=== PATIENT | female | born 2000 | race Caucasian/White ===

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

== ENCOUNTER 2024-08-03 09:21 | Outpatient (CLI) | payer OTHER, SELFPAY ==
[2024-08-03 15:23] LABS: Cholesterol 143 mg/dl (140-200); HDL Cholesterol 48 mg/dl (40-60); Triglycerides 57 mg/dl (30-150); VLDL Cholesterol 11 mg/dL (0-40)
[2024-08-03 15:34] LABS: Direct LDL Cholesterol 82.07 mg/dL (100-129)
[2024-08-03 15:54] LABS: Thyroid Stimulating Hormone 2.48 uIU/mL (0.465-4.68)
[2024-08-04 11:12] LABS: Anti-Centromere B Antibodies <0.2 AI (0.0-0.9); Anti-DNA (DS) Ab Qn 2 IU/mL (0-9); Anti-Jo-1 <0.2 AI (0.0-0.9); Anti-Smith Antibody <0.2 AI (0.0-0.9); Antichromatin Antibodies <0.2 AI (0.0-0.9); Antiscleroderma-70 Antibodies <0.2 AI (0.0-0.9); RNP Antibodies 0.2 AI (0.0-0.9); Sjogren's Anti-SS-A 0.3 AI (0.0-0.9); Sjogren's Anti-SS-B <0.2 AI (0.0-0.9)
== END 2024-08-03 23:59 | disposition home or self-care (01) ==
LOC: LAB.DROPOF 08-04 11:03
PROVIDERS: PCP Internal Medicine; Visit Provider Internal Medicine
DX: Z13.29 Encounter for screening for other suspected endocrine disorder (principal); Z13.220 Encounter for screening for lipoid disorders; M35.3 Polymyalgia rheumatica; R53.83 Other fatigue; M25.50 Pain in unspecified joint; E66.811 Obesity, class 1; Z68.30 Body mass index [BMI] 30.0-30.9, adult; Z82.49 Family history of ischemic heart disease and other diseases of the circulatory system
CPT/HCPCS: 80061; 84439; 84443; 86225; 86235

== ENCOUNTER 2024-08-16 18:55 | Outpatient (CLI) | payer OTHER, SELFPAY ==
[2024-08-17 15:38] LABS: Coronavirus 19, PCR Not Detected (NotDetected); Human Rhinovirus Not Detected (NotDetected); Influenza A, PCR Not Detected (NotDetected); Influenza B, PCR Not Detected (NotDetected); Respiratory Syncytial Virus Not Detected (NotDetected)
== END 2024-08-16 23:59 | disposition home or self-care (01) ==
LOC: LAB.DROPOF 08-18 13:08
PROVIDERS: PCP Nurse Practitioner; Visit Provider Nurse Practitioner
DX: R52 Pain, unspecified (principal)
CPT/HCPCS: 87631

== ENCOUNTER 2024-10-17 10:25 | Day surgery (SDC) | payer OTHER, SELFPAY ==
--- OUTSIDE RECORDS SUMMARY | 2024-05-30 12:30 | XMS_ITS ---
Author Organization [facility] Address [address] [place] [phone] Care Team Providers Care Fish Roe Processor Name Role Phone Suni Oconnell Unavailable [phone] Jacqueline Valerio Unavailable [phone] Allergies No Known Allergies REASON FOR VISIT [...] Encounters Encounter Location Date Provider Diagnosis [facility] [address] [place] [address] [place] [phone] 05/30/2024 Jacqueline Valerio Arthralgia M25.50 Assessments Encounter Date Diagnosis (ICD Code) Assessment Notes Treatment Notes Treatment Clinical Notes Section Notes 05/30/2024 Arthralgia (ICD-10 - M25.50) Plan Of Treatment Medication Medication Name Sig Start Date Stop Date Notes Meloxicam 15 MG 1 tablet Orally Once a day; Duration: 30 day(s) 05/30/2024 Pending Test Test Name Order Date U-U-Bvxrrwff Protein (CRP) 05/30/2024 P-Arthritis Panel, [facility] 05/30/2024 P-Uric Acid 05/30/2024 Next Appt Details Follow Up: 4 Weeks, Reason: Progress Notes * NYA SERNAOB:2000 (23 yo F)Acc No.[id number]:05/30/2024 Progress Notes Patient: KATHRINE WORLEY Provider: Jacqueline Valerio M.D. :2000 A ge:23 Y S ex:Female Date:05/30/2024 Address:[address] [place] [address] Subjective: * Chief Complaints: * 1 . [...] * Images: Billing Information: * Visit Code: 35794 Office Visit, Est Pt., Level 3. * Procedure Codes: 3074F SYST BP LT 130 MM HG. 3078F DIAST BP < 80 MM HG. * Electronic signature of Jacqueline Valerio MD on 10/17/2024 at 10:33 AM EDT Sign off status: Pending * Provider: Jacqueline Valerio M.D. Date: 0 05/30/2024 Generated for Santos putnam/Soco/Jeannasmitting on: 0 10/17/2024 10:33 AM EDT History and Physical Notes * Examination Category Sub-Category Detail Notes Category Not es General Examination Extremities: On examinati on, there is no acute joint swelling, redness, or warmth. Range of motion of joints is normal. General Appearance: NAD
--- OUTSIDE RECORDS SUMMARY | 2024-05-31 04:15 | XMS_ITS ---
Author Organization [facility] Address [address] [phone] Care Team Providers Care Store Receiver Name Role Phone Suni Oconnell Unavailable [phone] Jacqueline Valerio Unavailable [phone] Results Component Value Reference Range Notes P-Arthritis Panel, [facility] Reviewed date:06/05/2024 10:23:08 AM Interpretation:Normal Performing Lab: Notes/Report: Test performed by [facility] , [address], [place] [address] Silvino Reese MD, Mender Hand CLIA: [id number] Erythrocyte Sedimentation Rate (ESR), Automated 2 <26 mm/hr Rheumatoid Factor 11.0 <14.1 IU/mL C-Reactive Protein (CRP) 0.14 <0.50 mg/dL Antinuclear Antibodies (VAN) Screen, Reflex VAN 9 Panel Negative Negative This test is performed by Multiplex Bead Immunoassay methodology. Antinuclear Antibodies (VAN) Result Note SEE COMMENT For positive Autoantibodies, please refer to the interpretive chart here: [email or web address] CCP Antibodies <0.5 <0.5-3.0 U/mL P-Uric Acid Reviewed date:06/05/2024 10:23:08 AM Interpretation:Normal Performing Lab: Notes/Report: Test performed by [facility] , [address], [place] [address] Silvino Reese MD, Mender Hand CLIA: [id number] Uric Acid 5.4 2.4-7.0 mg/dL REASON FOR VISIT blood work Encounters Encounter Location Date Provider Diagnosis [facility] [address] [place] [phone] 05/31/2024 Jacqueline Valerio Arthralgia of multip le joints M25.50 Assessments Encounter Date Diagnosis (ICD Code) Assessment Notes Treatment Notes Treatment Clinical Notes Section Notes 05/31/2024 Arthralgia of multiple joints (ICD-10 - M25.50) Plan Of Treatment Pending Test Test Name Order Date E-F-Giwuifxt Protein (CRP) 05/31/2024 Progress Notes * NYA SERNAOB:2000 (23 yo F)Acc No.[id number]:05/31/2024 Patient: KAYE WORLEY Provider: Jacqueline Valerio M.D. :2000 A ge:23 Y S ex:Female Date:05/31/2024 Address:[address] [place] [address] Subjective: * Chief Complaints: * 1 . [...] 05/31/2024 Generated for Hani jersey/Soco/eTransmitting on: 0 10/17/2024 10:33 AM EDT
--- OUTSIDE RECORDS SUMMARY | 2024-06-27 12:15 | XMS_ITS ---
Author Organization [facility] Address [address] [place] [phone] Care Team Providers Care Controller Mechanic Name Role Phone Suni Oconnell Unavailable [phone] Jacqueline Valerio Unavailable [phone] REASON FOR VISIT 1 month ckup Encounters Encounter Location Date Provider Diagnosis [facility] [address] [place] [phone] 06/27/2024 Jacqueline Valerio Plan Of Treatment No Information Progress Notes * NYA SERNAOB:2000 (23 yo F)Acc No.[id number]:06/27/2024 Progress Notes Patient: KAYE WORLEY Provider: Jacqueline Valerio M.D. :2000 A ge:23 Y S ex:Female Date:06/27/2024 Address:[address] [place], [place] [phone] Subjective: * Chief Complaints: * 1 . 1 month ckup. * Medical History: Objective: * Vitals: Assessment: Plan: * Treatment: * Images: Billing Information: * Visit Code: * Procedure Codes: * Electronic signature of Jacqueline Valerio MD on 10/17/2024 at 10:34 AM EDT Sign off status: Pending * Provider: Jacqueline Valerio M.D. Date: 0 06/27/2024 Generated for Printi ng/Faalistairg/eTransmitting on: 0 10/17/2024 10:34 AM EDT
--- OUTSIDE RECORDS SUMMARY | 2024-10-17 10:34 | XMS_ITS | Patient Health Record ---
Author Organization [facility] Address [address] [phone] Care Team Providers Care Home Mortgage Disclosure Act Specialist Name Role Phone Suni Oconnell Unavailable [phone] Jacqueline Valerio Unavailable [phone] Allergies No Known Allergies Results Component Value Reference Range Notes P-Arthritis Panel, [facility] [facility] Reviewed date:06/05/2024 10:23:08 AM Interpretation:Normal Performing Lab: Notes/Report: Test performed by [facility] , [address], [place] [address] Silvino Reese MD, Multiple Coil Winder CLIA: [id number] Erythrocyte Sedimentation Rate (ESR), Automated 2 <26 mm/hr Rheumatoid Factor 11.0 <14.1 IU/mL C-Reactive Protein (CRP) 0.14 <0.50 mg/dL Antinuclear Antibodies (VAN) Screen, Reflex VAN 9 Panel Negative Negative This test is performed by Multiplex Bead Immunoassay methodology. Antinuclear Antibodies (VAN) Result Note SEE COMMENT For positive Autoantibodies, please refer to the interpretive chart here: [email or web address] [email or web address] CCP Antibodies <0.5 <0.5-3.0 U/mL P-Uric Acid Reviewed date:06/05/2024 10:23:08 AM Interpretation:Normal Performing Lab: Notes/Report: Test performed by [facility] , [address], [place] [address] Silvino Reese MD, Multiple Coil Winder CLIA: [id number] Uric Acid 5.4 2.4-7.0 mg/dL Reason For Referral No Information Medications Medication SIG (Take, Route, Fr equency, Duration) Notes Start Date End Date Status Meloxicam 15 MG 1 tablet Orally Once a day; Duration: 30 day(s) 05/30/2024 Active Immunizations Vaccine Route Administration Date Status Comme nts IPV Unknown 12/08/2006 Administered MMR Unknown 03/11/2004 Administered pediarix Unknown 02/02/2003 Administered pediarix Unknown 04/03/2003 Administered pediarix Unknown 06/06/2003 Administered ProQuad Unknown 12/08/2006 Administered Tetanus Tdap-Adacel (over 7yrs) Unknown 09/29/2013 Admi nistered Tetanus Tdap-Adacel (over 7yrs) Unknown 01/28/2020 Admi nistered Varivax Unknown 12/11/2003 Administered Vital Signs Heart Rate 66 /min 05/30/2024 Blood pressure diastolic 72 mm Hg 05/30/2024 Height 64 in 05/30/2024 Blood pressure systolic 116 mm Hg 05/30/2024 Weight 171.8 lbs 05/30/2024 BMI 29.49 kg/m2 05/30/2024 Encounters Encounter Location Date Provider Diagnosis [facility] [address] [place] [phone] 05/30/2024 R Kingsley Valerio Arthralgia M25.50 [facility] [address] [place] [phone] 05/31/2024 R Kingsley Singhfleet Arthralgia of multip le joints M25.50 [facility] [address] [place], [place] [phone] 06/05/2024 Suni Oconnell Assessments Encounter Date Diagnosis (ICD Code) Assessment Notes Treatment Notes Treatment Clinical Notes Section Notes 05/30/2024 Arthralgia (ICD-10 - M25.50) 05/31/2024 Arthralgia of multiple joints (ICD-10 - M25.50) Plan Of Treatment Pending Test Test Name Order Date I-C-Zcwbglsr Protein (CRP) 05/30/2024 G-J-Xhhqoetf Protein (CRP) 05/31/2024 P-Arthritis Panel, [facility] 05/30/2024 P-Uric Acid 05/30/2024 Insurance Providers Payer Name Payer Address Payer Phone Subscriber Number Group Number Insured Name Patient Relationship to Insured Coverage Start Date Coverage End Date KYLE JAVED [address] [place] [address] [id number] KAYE SERNA Self - patient is the insured Medical (General) History Surgical History Surgery Date(Month/Year) Tonsillectomy 2009 Right ACL and Meniscus repair Dr Mata 2018
[2024-10-17 11:03] VITALS: BP 133/81; PULSE 75; RESP 20; TEMP 36.8; O2SAT 95
--- NOTE | 2024-10-17 13:12 | HMH.PROCNOTE ---
[facility] Procedure Note Date: 10/17/24 Time: 11:00 Procedure Note:: Date: 10/17/2024 Time: 1127 Procedure: Tilt Table Testing Indication: concern for pots, tachycardia Procedure summary: Patient presented to post op for Tilt Table Test. Pre test vitals in a supine position- systolic BP of 113-121 over diastolic of 65-71 with a heart rate of 64. Oxygen was 100 percent on room air. Baseline EKG was NSR. Test started at 1133 and stopped at 1203. During this time patient was tilted to 70 degrees. Systolic BP averaged in the 120s. Oxygen saturation remained > 95 throughout test. Heart rate started at 83 and over the course of 30 mins increased to 104. Only complaint during test was feeling hazy. After test patient reported feeling back to baseline with no complaints. Complications: None
== END 2024-10-17 23:59 | disposition home or self-care (01) ==
LOC: RT 10-18 09:05
PROVIDERS: PCP Internal Medicine; Visit Provider Internal Medicine
DX: R00.0 Tachycardia, unspecified (principal); G89.29 Other chronic pain; Z82.49 Family history of ischemic heart disease and other diseases of the circulatory system
CPT/HCPCS: 93660

== ENCOUNTER 2024-11-22 07:44 | Outpatient (CLI) | payer OTHER, SELFPAY ==
--- OUTSIDE RECORDS SUMMARY | 2024-05-30 12:30 | XMS_ITS ---
Author Organization [facility] Address [address] [place] [phone] Care Team Providers Care Client Professional Name Role Phone Suni Oconnell Unavailable [phone] Jacqueline Valerio Unavailable [phone] Allergies No Known Allergies REASON FOR VISIT chronic pain all over Medications Medication SIG (Take, Route, Fr equency, Duration) Notes Start Date End Date Status Meloxicam 15 MG 1 tablet Orally Once a day; Duration: 30 day(s) 05/30/2024 Active Vital Signs Weight 171.8 lbs 05/30/2024 Blood pressure systolic 116 mm Hg 05/31/19 25 Blood pressure diastolic 72 mm Hg 025 Heart Rate 66 /min 05/30/2024 Height 64 in 05/30/2024 BMI 29.49 kg/m2 05/30/2024 Encounters Encounter Location Date Provider Diagnosis [facility] [address] [place] [address] [place] [id number] 05/30/2024 Jacqueline Valerio Arthralgia M25.50 Assessments Encounter Date Diagnosis (ICD Code) Assessment Notes Treatment Notes Treatment Clinical Notes Section Notes 05/30/2024 Arthralgia (ICD-10 - M25.50) Plan Of Treatment Medication Medication Name Sig Start Date Stop Date Notes Meloxicam 15 MG 1 tablet Orally Once a day; Duration: 30 day(s) 05/30/2024 Pending Test Test Name Order Date Y-Z-Pietoxdx Protein (CRP) 05/30/2024 P-Arthritis Panel, [facility] 05/30/2024 P-Uric Acid 05/30/2024 Next Appt Details Follow Up: 4 Weeks, Reason: Progress Notes * NYA SERNAOB:2000 (23 yo F)Acc No.[id number]:05/30/2024 Progress Notes Patient: KATHRINE WORLEY Provider: Jacqueline Valerio M.D. :2000 A ge:23 Y S ex:Female Date:05/30/2024 Address:[address] [place] [address] Subjective: * Chief Complaints: * 1 . [...] * Images: Billing Information: * Visit Code: 72684 Office Visit, Est Pt., Level 3. * Procedure Codes: 3074F SYST BP LT 130 MM HG. 3078F DIAST BP < 80 MM HG. * Electronic signature of Jacqueline Valerio MD on 11/22/2024 at 07:48 AM EDT Sign off status: Pending * Provider: Jacqueline Valerio M.D. Date: 0 05/30/2024 Generated for Santos putnam/Soco/Jeannasmitting on: 0 11/22/2024 07:48 AM EDT History and Physical Notes * Examination Category Sub-Category Detail Notes Category Not es General Examination Extremities: On examinati on, there is no acute joint swelling, redness, or warmth. Range of motion of joints is normal. General Appearance: NAD
--- OUTSIDE RECORDS SUMMARY | 2024-05-31 04:15 | XMS_ITS ---
Author Organization [facility] Address [address] [id number] Care Team Providers Care Powder Mixer Name Role Phone Suni Oconnell Unavailable [phone] Jacqueline Valerio Unavailable [phone] Results Component Value Reference Range Notes P-Arthritis Panel, [facility] Reviewed date:06/05/2024 10:23:08 AM Interpretation:Normal Performing Lab: Notes/Report: Test performed by [facility] , [address], [place] [address] Silvino Reese MD, Forest Ranger Technician CLIA: [id number] Erythrocyte Sedimentation Rate (ESR), Automated 2 <26 mm/hr Rheumatoid Factor 11.0 <14.1 IU/mL C-Reactive Protein (CRP) 0.14 <0.50 mg/dL Antinuclear Antibodies (VAN) Screen, Reflex VAN 9 Panel Negative Negative This test is performed by Multiplex Bead Immunoassay methodology. Antinuclear Antibodies (VAN) Result Note SEE COMMENT For positive Autoantibodies, please refer to the interpretive chart here: [email or web address] [email or web address] [email or web address] CCP Antibodies <0.5 <0.5-3.0 U/mL P-Uric Acid Reviewed date:06/05/2024 10:23:08 AM Interpretation:Normal Performing Lab: Notes/Report: Test performed by [facility] [place] , [address], [place] [address] Silvino Reese MD, Forest Ranger Technician CLIA: [id number] Uric Acid 5.4 2.4-7.0 mg/dL REASON FOR VISIT blood work Encounters Encounter Location Date Provider Diagnosis [facility] [address] [place] [phone] 05/31/2024 Jacqueline Valerio Arthralgia of multip le joints M25.50 Assessments Encounter Date Diagnosis (ICD Code) Assessment Notes Treatment Notes Treatment Clinical Notes Section Notes 05/31/2024 Arthralgia of multiple joints (ICD-10 - M25.50) Plan Of Treatment Pending Test Test Name Order Date W-H-Efpctmcw Protein (CRP) 05/31/2024 Progress Notes * NYA SERNAOB:2000 (23 yo F)Acc No.[id number]:05/31/2024 Patient: KAYE WORLEY Provider: Jacqueline Valerio M.D. :2000 A ge:23 Y S ex:Female Date:05/31/2024 Address:[address] [place] [address] Subjective: * Chief Complaints: * 1 . [...] 0 05/31/2024 Generated for Hani jersey/Soco/eTransmitting on: 0 11/22/2024 07:48 AM EDT
--- OUTSIDE RECORDS SUMMARY | 2024-06-27 12:15 | XMS_ITS ---
Author Organization [facility] Address [address] [place] [phone] Care Team Providers Care Gauge Operator Name Role Phone Suni Oconnell Unavailable [phone] Jacqueline Valerio Unavailable [phone] REASON FOR VISIT 1 month ckup Encounters Encounter Location Date Provider Diagnosis [facility] [address] [place] [phone] 06/27/2024 Jacqueline Valerio Plan Of Treatment No Information Progress Notes * NYA SERNAOB:2000 (23 yo F)Acc No.[id number]:06/27/2024 Progress Notes Patient: KAYE WORLEY Provider: Jacqueline Valerio M.D. :2000 A ge:23 Y S ex:Female Date:06/27/2024 Address:[address] [place], [place] [phone] Subjective: * Chief Complaints: * 1 . 1 month ckup. * Medical History: Objective: * Vitals: Assessment: Plan: * Treatment: * Images: Billing Information: * Visit Code: * Procedure Codes: * Electronic signature of Jacqueline Valerio MD on 11/22/2024 at 07:48 AM EDT Sign off status: Pending * Provider: Jacqueline Valerio M.D. Date: 0 06/27/2024 Generated for Printi ng/Faalistairg/eTransmitting on: 0 11/22/2024 07:48 AM EDT
--- OUTSIDE RECORDS SUMMARY | 2024-11-22 07:48 | XMS_ITS | Patient Health Record ---
Author Organization [facility] Address [address] [phone] Care Team Providers Care Gill Net Stringer Name Role Phone Suni Oconnell Unavailable [phone] Jacqueline Valerio Unavailable [phone] Allergies No Known Allergies Results Component Value Reference Range Notes P-Arthritis Panel, [facility] Reviewed date:06/05/2024 10:23:08 AM Interpretation:Normal Performing Lab: Notes/Report: Test performed by [facility] [place] , [address], [place] [address] Silvino Reese MD, Clinical Staff Anesthesiologist CLIA: [id number] Erythrocyte Sedimentation Rate (ESR), Automated 2 <26 mm/hr Rheumatoid Factor 11.0 <14.1 IU/mL C-Reactive Protein (CRP) 0.14 <0.50 mg/dL Antinuclear Antibodies (VAN) Screen, Reflex VAN 9 Panel Negative Negative This test is performed by Multiplex Bead Immunoassay methodology. Antinuclear Antibodies (VAN) Result Note SEE COMMENT For positive Autoantibodies, please refer to the interpretive chart here: [email or web address] [email or web address] CCP Antibodies <0.5 <0.5-3.0 U/mL P-Uric Acid Reviewed date:06/05/2024 10:23:08 AM Interpretation:Normal Performing Lab: Notes/Report: Test performed by [facility] [place] , [address], [place] [address] Silvino Reese MD, Clinical Staff Anesthesiologist CLIA: [id number] Uric Acid 5.4 2.4-7.0 mg/dL Reason For [...] 05/30/2024 Encounters Encounter Location Date Provider Diagnosis [facility] [address] [place] [phone] 05/30/2024 R Kingsley Valerio Arthralgia M25.50 [facility] [address] [place] [phone] 05/31/2024 R Kingsley Singhfleet Arthralgia of multip le joints M25.50 [facility] [address] [place], [place] [phone] 06/05/2024 Suni Oconnell Assessments Encounter Date Diagnosis (ICD Code) Assessment Notes Treatment Notes Treatment Clinical Notes Section Notes 05/30/2024 Arthralgia (ICD-10 - M25.50) 05/31/2024 Arthralgia of multiple joints (ICD-10 - M25.50) Plan Of Treatment Pending Test Test Name Order Date M-A-Vesylwcl Protein (CRP) 05/30/2024 S-R-Bjffbtsu Protein (CRP) 05/31/2024 P-Arthritis Panel, [facility] 05/30/2024 P-Uric Acid 05/30/2024 Insurance Providers Payer Name Payer Address Payer Phone Subscriber Number Group Number Insured Name Patient Relationship to Insured Coverage Start Date Coverage End Date KYLE JAVED [address] [place] [address] [id number] KAYE SERNA Self - patient is the insured Medical (General) History Surgical History Surgery Date(Month/Year) Tonsillectomy 2009 Right ACL and Meniscus repair Dr Mata 2018
--- NOTE | 2024-11-22 08:00 | CA_ITS ---
APPROVED REPORT EXAM: Comprehensive 2D, Doppler, and color-flow Echocardiogram Reconciling Clerk: Roxi Harden RCS, RVS Ht: 5 ft 4 in Wt: 172lbs BSA: 1.83 BP: 123/86 mmHg Indications: POTS, Abn EKG, Tachycardia, Dizziness Echo Enhancing Agent Indication: Rule out Shunt Agent(s) / Amount(s) Used: Agitated Saline 20 cc 2D Dimensions Left Atrium 2.61 cm F: 2.7 - 3.8 LA Volume 36.50 mL LA Volume Index 19.288521 mL/m2 (M/F) 16-34 M-Mode Dimensions RVDd 2.49 cm (0.9-2.6) LA Diam 2.78 cm (1.9-4.0) LVDd 4.55 cm (3.5-5.7) LVDs 2.73 cm (3.5-5.7) IVSd 0.81 cm (0.6-1.1) PWd 0.72 cm (0.6-1.1) EF (Teich) 70.10% EPSs 0.20 cm FS 39.50% EDV (Teich) 92.90 mL ESV (Teich) 27.80 mL LV Diastology E Decel Time 227 (160-240 msec) E/A Ratio 3.29 MED A' 6.30 cm/s LAT A' 6.80 cm/s Pulm Vein s 73.00 cm/sec Pulm Vein d 18.00 cm/sec Ar-A Duration 100.00 msec Aortic Valve AoV Peak Bernardo. 130.0 (50-130 cm/s) AO Peak GR. 6.80 mmHg AO Mean GR. 3.40 (<5 mmHg) AO VTI 28.4 (18-25 cm) Mitral Valve MV A Velocity 40.0 (40-130 cm/s) E/A Ratio 3.[address] End VMAX 169.0 cm/s Tricuspid Valve TR P. Velocity 190.00 cm/s RAP Estimate 10.00 mmHg RVSP 24.40 mmHg Left Ventricle The left ventricle is normal size. Left ventricular systolic function is normal. The left ventricular ejection fraction is within the normal range. There is normal left ventricular wall thickness. There is normal LV segmental wall motion. The left ventricular diastolic function is normal. LVEF is 55% Right Ventricle The right ventricle is normal size. The right ventricular systolic function is normal. Atria The left atrium size is normal. The right atrium size is normal. There is no color Doppler evidence of interatrial shunt. Aortic Valve The aortic valve opens well. There is no hemodynamically significant aortic valvular stenosis. No aortic regurgitation is present. Mitral Valve The mitral valve is normal in structure. No evidence of mitral valve stenosis. Mild mitral regurgitation is present. Tricuspid Valve The tricuspid valve leaflets are thin and pliable. Mild tricuspid regurgitation. RVSP is 20-25 mmHg. Pulmonic Valve The pulmonary valve is grossly normal in structure. Mild pulmonic valve regurgitation is present. Great Vessels The aortic root is normal in size. IVC is normal in size and collapses >50% with inspiration. Pericardium There is no pericardial effusion. Other Information Study Quality: Fair Conclusion Normal biventricular systolic function. Mild TR, mild MR, mild CT. Electronically signed by : Meche Guevara MD 11/22/2024 12:39:11
== END 2024-11-22 23:59 | disposition home or self-care (01) ==
LOC: RT 07:46
PROVIDERS: PCP Internal Medicine; Visit Provider Physician Assistant
DX: I08.8 Other rheumatic multiple valve diseases (principal); G90.A Postural orthostatic tachycardia syndrome [POTS]; R94.31 Abnormal electrocardiogram [ECG] [EKG]
CPT/HCPCS: 93306

== ENCOUNTER 2024-11-26 05:46 | Emergency (ER) | payer OTHER, SELFPAY ==
--- OUTSIDE RECORDS SUMMARY | 2024-05-30 12:30 | XMS_ITS ---
Author Organization [facility] Address [address] [place] [phone] Care Team Providers Care Regulatory Affairs Internship Name Role Phone Suni Oconnell Unavailable [phone] Jacqueline Valerio Unavailable [phone] Allergies No Known Allergies REASON FOR VISIT [...] Encounters Encounter Location Date Provider Diagnosis [facility] [address] [place] [address] [place] [phone] 05/30/2024 Jacqueline Valerio Arthralgia M25.50 Assessments Encounter Date Diagnosis (ICD Code) Assessment Notes Treatment Notes Treatment Clinical Notes Section Notes 05/30/2024 Arthralgia (ICD-10 - M25.50) Plan Of Treatment Medication Medication Name Sig Start Date Stop Date Notes Meloxicam 15 MG 1 tablet Orally Once a day; Duration: 30 day(s) 05/30/2024 Pending Test Test Name Order Date E-I-Qipimzcl Protein (CRP) 05/30/2024 P-Arthritis Panel, [facility] 05/30/2024 P-Uric Acid 05/30/2024 Next Appt Details Follow Up: 4 Weeks, Reason: Progress Notes * NYA SERNAOB:2000 (23 yo F)Acc No.[id number]:05/30/2024 Progress Notes Patient: KATHRINE WORLEY Provider: Jacqueline Valerio M.D. :2000 A ge:23 Y S ex:Female Date:05/30/2024 Address:[address] [place] [address] Subjective: * Chief Complaints: * 1 . [...] * Images: Billing Information: * Visit Code: 43798 Office Visit, Est Pt., Level 3. * Procedure Codes: 3074F SYST BP LT 130 MM HG. 3078F DIAST BP < 80 MM HG. * Electronic signature of Jacqueline Valerio MD on 11/26/2024 at 05:57 AM EDT Sign off status: Pending * Provider: Jacqueline Valerio M.D. Date: 0 05/30/2024 Generated for Santos putnam/Soco/Jeannasmitting on: 0 11/26/2024 05:57 AM EDT History and Physical Notes * Examination Category Sub-Category Detail Notes Category Not es General Examination Extremities: On examinati on, there is no acute joint swelling, redness, or warmth. Range of motion of joints is normal. General Appearance: NAD
--- OUTSIDE RECORDS SUMMARY | 2024-05-31 04:15 | XMS_ITS ---
Author Organization [facility] Address [address] [phone] Care Team Providers Care Medical Reception Specialist Name Role Phone Suni Oconnell Unavailable [phone] Jacqueline Valerio Unavailable [phone] Results Component Value Reference Range Notes P-Arthritis Panel, [employer] Reviewed date:06/05/2024 10:23:08 AM Interpretation:Normal Performing Lab: Notes/Report: Test performed by [facility] , [address], [place] [address] Silvino Reese MD, Student Development Advisor CLIA: [id number] Erythrocyte Sedimentation Rate (ESR), Automated 2 <26 mm/hr Rheumatoid Factor 11.0 <14.1 IU/mL C-Reactive Protein (CRP) 0.14 <0.50 mg/dL Antinuclear Antibodies (VAN) Screen, Reflex VAN 9 Panel Negative Negative This test is performed by Multiplex Bead Immunoassay methodology. Antinuclear Antibodies (VAN) Result Note SEE COMMENT For positive Autoantibodies, please refer to the interpretive chart here: [email or web address] [email or web address] CCP Antibodies <0.5 <0.5-3.0 U/mL P-Uric Acid Reviewed date:06/05/2024 10:23:08 AM Interpretation:Normal Performing Lab: Notes/Report: Test performed by [facility] , [address], [place] [address] Silvino Reese MD, Student Development Advisor CLIA: [id number] Uric Acid 5.4 2.4-7.0 mg/dL REASON FOR VISIT blood work Encounters Encounter Location Date Provider Diagnosis [facility] [address] [place] [phone] 05/31/2024 Jacqueline Valerio Arthralgia of multip le joints M25.50 Assessments Encounter Date Diagnosis (ICD Code) Assessment Notes Treatment Notes Treatment Clinical Notes Section Notes 05/31/2024 Arthralgia of multiple joints (ICD-10 - M25.50) Plan Of Treatment Pending Test Test Name Order Date C-E-Paxdxtqt Protein (CRP) 05/31/2024 Progress Notes * NYA SERNAOB:2000 (23 yo F)Acc No.[id number]:05/31/2024 Patient: KAYE WORLEY Provider: Jacqueline Valerio M.D. :2000 A ge:23 Y S ex:Female Date:05/31/2024 Address:[address] [place] [address] Subjective: * Chief Complaints: * 1 . [...] 05/31/2024 Generated for Hani jersey/Soco/eTransmitting on: 0 11/26/2024 05:57 AM EDT
--- OUTSIDE RECORDS SUMMARY | 2024-06-27 12:15 | XMS_ITS ---
Author Organization [facility] Address [address] [place] [phone] Care Team Providers Care Rheostat Assembler Name Role Phone Suni Oconnell Unavailable [phone] Jacqueline Valerio Unavailable [phone] REASON FOR VISIT 1 month ckup Encounters Encounter Location Date Provider Diagnosis [facility] [address] [place] [phone] 06/27/2024 Jacqueline Valerio Plan Of Treatment No Information Progress Notes * NYA SERNAOB:2000 (23 yo F)Acc No.[id number]:06/27/2024 Progress Notes Patient: KAYE WORLEY Provider: Jacqueline Valerio M.D. :2000 A ge:23 Y S ex:Female Date:06/27/2024 Address:[address] [place], [place] [phone] Subjective: * Chief Complaints: * 1 . 1 month ckup. * Medical History: Objective: * Vitals: Assessment: Plan: * Treatment: * Images: Billing Information: * Visit Code: * Procedure Codes: * Electronic signature of Jacqueline Valerio MD on 11/26/2024 at 05:57 AM EDT Sign off status: Pending * Provider: Jacqueline Valerio M.D. Date: 0 06/27/2024 Generated for Printi ng/Faalistairg/eTransmitting on: 0 11/26/2024 05:57 AM EDT
[2024-11-26] VITALS (9 sets, daily range): BP systolic 95–120; BP diastolic 55–77; PULSE 93–137; RESP 13–22; TEMP 36.8–38.2; O2SAT 93–100; BMI 25.0
--- OUTSIDE RECORDS SUMMARY | 2024-11-26 05:57 | XMS_ITS | Patient Health Record ---
Author Organization [facility] Address [address] [facility] [address] [id number] Care Team Providers Care Educational Administration Teacher Name Role Phone Suni Oconnell Unavailable [phone] Jacqueline Valerio Unavailable [phone] Allergies No Known Allergies Results Component Value Reference Range Notes P-Uric Acid Reviewed date:06/05/2024 10:23:08 AM Interpretation:Normal Performing Lab: Notes/Report: Test performed by [facility] [address] [place], [place] [address] [place] , [address], [place] [address] Silvino Reese MD, Coating Technician CLIA: [id number] Uric Acid 5.4 2.4-7.0 mg/dL P-Arthritis Panel, [facility] Reviewed date:06/05/2024 10:23:08 AM Interpretation:Normal Performing Lab: Notes/Report: Test performed by [facility] [address] [place] [address] , [address], [place] [address] Silvino Reese MD, Coating Technician CLIA: [id number] Erythrocyte Sedimentation Rate (ESR), Automated 2 <26 mm/hr Rheumatoid Factor 11.0 <14.1 IU/mL C-Reactive Protein (CRP) 0.14 <0.50 mg/dL Antinuclear Antibodies (VAN) Screen, Reflex VAN 9 Panel Negative Negative This test is performed by Multiplex Bead Immunoassay methodology. Antinuclear Antibodies (VAN) Result Note SEE COMMENT For positive Autoantibodies, please refer to the interpretive chart here: [email or web address] CCP Antibodies <0.5 <0.5-3.0 U/mL Reason For Referral No Information Medications Medication SIG (Take, Route, Fr equency, Duration) Notes Start Date End Date Status Meloxicam 15 MG 1 tablet Orally Once a day; Duration: 30 day(s) 05/30/2024 Active Immunizations Vaccine Route Administration Date Status Comme nts Varivax Unknown 12/11/2003 Administered Tetanus Tdap-Adacel (over 7yrs) Unknown 09/29/2013 Admi nistered Tetanus Tdap-Adacel (over 7yrs) Unknown 01/28/2020 Admi nistered ProQuad Unknown 12/08/2006 Administered pediarix Unknown 02/02/2003 Administered pediarix Unknown 04/03/2003 Administered pediarix Unknown 06/06/2003 Administered MMR Unknown 03/11/2004 Administered IPV Unknown 12/08/2006 Administered Vital Signs Heart Rate 66 /min 05/30/2024 Blood pressure diastolic 72 mm Hg 05/30/2024 Height 64 in 05/30/2024 Blood pressure systolic 116 mm Hg 05/30/2024 Weight 171.8 lbs 05/30/2024 BMI 29.49 kg/m2 05/30/2024 Encounters Encounter Location Date Provider Diagnosis [facility] [address] JENN Pinzon [id number] 05/30/2024 R Kingsley Valerio Arthralgia M25.50 [facility] [address] JENN Pinzon [id number] 05/31/2024 R Kingsley Singhfleet Arthralgia of multip le joints M25.50 [facility] [address] JENN Pinzon [phone] 06/05/2024 Suni Oconnell Assessments Encounter Date Diagnosis (ICD Code) Assessment Notes Treatment Notes Treatment Clinical Notes Section Notes 05/30/2024 Arthralgia (ICD-10 - M25.50) 05/31/2024 Arthralgia of multiple joints (ICD-10 - M25.50) Plan Of Treatment Pending Test Test Name Order Date F-E-Pcyeduif Protein (CRP) 05/30/2024 K-A-Rwwilajm Protein (CRP) 05/31/2024 P-Arthritis Panel, [facility] 05/30/2024 P-Uric Acid 05/30/2024 Insurance Providers Payer Name Payer Address Payer Phone Subscriber Number Group Number Insured Name Patient Relationship to Insured Coverage Start Date Coverage End Date KYLE JAVED [id number] [place] [address] [id number] KAYE SERNA Self - patient is the insured Medical (General) History Surgical History Surgery Date(Month/Year) Tonsillectomy 2009 Right ACL and Meniscus repair Dr Mata 2018
--- NOTE | 2024-11-26 06:00 | XR_ITS ---
PROCEDURE INFORMATION: Exam: XR Chest Exam date and time: 11/26/2024 6:32 AM Age: 23 years old Clinical indication: Cough and fever and shortness of breath; Additional info: Tachy SOA TECHNIQUE: Imaging protocol: Radiologic exam of the chest. Views: 1 view. COMPARISON: No relevant prior studies available. FINDINGS: Lungs: Unremarkable. No consolidation. Pleural spaces: Unremarkable. No pleural effusion. No pneumothorax. Heart/Mediastinum: Unremarkable. No cardiomegaly. Bones/joints: Unremarkable. IMPRESSION: No acute findings.
--- NOTE | 2024-11-26 06:02 | HMH.EDCP ---
Discharge Plan Disposition Patient Disposition: Home, Self-Care Condition: Good Prescriptions Prescriptions: No Action metoprolol succinate [Toprol XL] 25 mg tablet extended release 24 hr 25 mg PO DAILY Qty: 30 5RF epinephrine 0.3 mg/0.3 mL auto-injector 0.3 ml SQ Q5-15M PRN (Reason: anaphylaxis) Qty: 2 2RF Rx Instructions: do not exceed 2 doses per episode duloxetine 40 mg capsule,delayed release(DR/EC) 40 mg PO DAILY Qty: 30 2RF levocetirizine [Xyzal] 5 mg Tablet 5 mg PO DAILY Referrals Follow up/Referrals: Liu Ramirez DO [Primary Care Provider, Family Practice] - See instructions Activity Restrictions/Add. Instructions Additional Instructions/Restrictions: Stay well-hydrated. Follow-up with cardiology tomorrow. You should see Meche at 1 PM. Please follow up with your primary care provider in 2-3 days. Please return to ED if your symptoms worsen, change in location, change in severity, new symptoms develop or if you become concerned for your health. Clinical Impressions Clinical Impression: Acute viral syndrome, Tachycardia, Abnormal ECG Print Language Print Language: Greenlandic Discharge ED Provider: Gina Ann HPI <Gina Ann MD - Last Filed: 11/26/24 06:46> General Chief Complaint: Fever Stated Complaint: cough, fever, body aches, [place] Time Seen by Provider: 11/26/24 05:49 History of Present Illness HPI narrative: 23-year-old female with recent diagnosis of POTS on metoprolol presents to the ER with cough, fever, body aches, headache, increased heart rate, shortness of breath. Patient reports she has had 24 hours of symptoms, fever up to 104 degrees, taking Tylenol without significant improvement. On arrival to the ER temperature 100.8. She had 1 episode of diarrhea in the last 24 hours, nonbloody, nonmelanotic. She states she feels like it is harder to catch her breath which is consistent with her POTS symptoms when her heart rate goes high. She states she took her metoprolol last night as prescribed. She admits to being bad about drinking fluids and on further discussion with patient and mom she is worried she may be dehydrated. Related Data Home Medications ?Medication ?Instructions ?Recorded ?Confirmed levocetirizine 5 mg tablet (Xyzal) 5 mg PO DAILY 10/17/24 11/09/24 Previous Rx's ?Medication ?Instructions ?Recorded duloxetine 40 mg capsule,delayed 40 mg PO DAILY #30 caps 09/05/24 release epinephrine 0.3 mg/0.3 mL 0.3 ml SQ Q5-15M PRN anaphylaxis 09/14/24 injection, auto-injector #2 ea metoprolol succinate 25 mg 25 mg PO DAILY #30 tabs 11/09/24 tablet,extended release 24 hr (Toprol XL) Allergies Allergy/AdvReac Type Severity Reaction Status Date / Time mosquito Allergy Swelling Uncoded 11/09/24 10:59 of Lip/Tongue/Throat [facility] <Gina Ann MD - Last Filed: 11/26/24 06:46> [facility] Disclaimer: The information contained in this section may have been updated after the patient was seen, as this information can be updated by other users. Medical History Flu-like symptoms Puncture wound in pediatric patient Acute maxillary sinusitis Family history of heart disease Fatigue Polyarthralgia Polymyalgia Viral syndrome History of meniscal tear Surgical History History of repair of ACL Hx of tonsillectomy Family History Other No significant family history Social History Smoking Status: Never smoker alcohol intake: never substance use type: denies use current occupational status: employed Travel in the last 8 weeks?: None housing: house Have you lived/traveled outside US in past 30 days?: No Contact w/someone who lives/traveled outside US past 30 days?: No Exposure to someone with infectious disease in past 14 days?: No Do you have a fever (greater than 100.4 F or 38 C)?: Yes Have you tested positive for COVID-19?: No Exposed to someone with COVID-19 in past 14 days?: No Do you have a sore throat?: No Do you have a cough?: Yes Do you have any weakness?: No Do you have any diarrhea?: No Are you experiencing any unusual bleeding?: No Do you have any muscle aches/pain?: Yes Do you have any abdominal pain?: No Are you experiencing loss of taste or smell?: No Other Medical History Have you received the Flu Vaccine for this season: No Have you received the Pneumonia Vaccine: No <Gina Ann MD - Last Filed: 11/26/24 06:46> ROS Obtained: Yes Systems reviewed as appropriate & no additional complaints except as documented Per HPI Physical Exam <Gina Ann MD - Last Filed: 11/26/24 06:46> General General appearance: alert and in no apparent distress Head Head exam: atraumatic and normocephalic Eye Eye exam: Present PERRL and EOMI ENT ENT exam: Present mucous membranes moist Neck Neck exam: Present normal inspection and full ROM; Absent lymphadenopathy Chest Chest inspection: Present symmetric chest wall rise; Absent tenderness Respiratory Respiratory exam: Present normal lung sounds bilaterally; Absent respiratory distress, wheezes or stridor Cardiovascular Cardiovascular exam: Present normal rhythm and tachycardia Abdominal Exam Abdominal exam: Present soft; Absent distention or tenderness Extremities Exam Extremities exam: Present full ROM Neurological Exam Neurological exam: Present alert and oriented X3; Absent motor sensory deficit Psychiatric Psychiatric exam: Present normal affect and normal mood Skin Skin exam: Present warm and dry HEART Score <Gina Ann MD - Last Filed: 11/26/24 06:46> HEART Score HEART Score assessment performed?: No <Paulo Wynn MD - Last Filed: 11/26/24 09:22> HEART Score HEART Score assessment performed?: Yes History (anamnesis): Slightly suspicious ECG: Normal Age: <45 years Risk factors: 1-2 risk factors Troponin: </= normal limit HEART Score: 1 Critical Care <Gina Ann MD - Last Filed: 11/26/24 06:46> Critical Care Time Critical Care Time: No Medical Decision Making <Gina Ann MD - Last Filed: 11/26/24 06:46> Medical Records Medical records reviewed: Yes I reviewed the patient's medical records. MR Comment: Reviewed echo bubble test from 11/22/2024 which demonstrates normal biventricular systolic function, mild TR, AZ, MR Barry Inquiry Pt receiving controlled substance: No Vital Signs Vital Signs: 11/26/24 05:55 11/26/24 06:27 11/26/24 06:30 Temperature 100.8 F H Temperature Source Oral Pulse Rate 107 H 109 H Pulse Rate [Left] 137 H Respiratory Rate 16 Blood Pressure 111/77 109/76 L Blood Pressure [Right Arm] 120/76 Blood Pressure Mean [Right Arm] 90 Blood Pressure Source [Right Arm] Automatic Cuff Blood Pressure Position [Right Arm] Sitting 02 Sat by Pulse Oximetry 98 99 99 Oxygen Delivery Method Room Air 11/26/24 07:00 11/26/24 07:29 11/26/24 08:00 Temperature Temperature Source Pulse Rate 108 H 111 H 99 H Pulse Rate [Left] Respiratory Rate 21 22 Blood Pressure 107/60 L 95/76 L 107/55 L Blood Pressure [Right Arm] Blood Pressure Mean [Right Arm] Blood Pressure Source [Right Arm] Blood Pressure Position [Right Arm] 02 Sat by Pulse Oximetry 93 L 96 96 Oxygen Delivery Method 11/26/24 08:30 Temperature Temperature Source Pulse Rate 93 H Pulse Rate [Left] Respiratory Rate 18 Blood Pressure 109/59 L Blood Pressure [Right Arm] Blood Pressure Mean [Right Arm] Blood Pressure Source [Right Arm] Blood Pressure Position [Right Arm] 02 Sat by Pulse Oximetry 97 Oxygen Delivery Method Lab Data Labs: Lab Results 11/26/24 06:00: SARS-CoV-2 (PCR) Not detected, Influenza Type A (PCR) Not detected, Influenza Type B (PCR) Not detected, RSV (PCR) Not detected, Rhinovirus (PCR) Not detected 11/26/24 06:06: WBC 8.8, RBC 4.82, Hgb 13.4, Hct 39.8, MCV 82.6, MCH 27.8, MCHC 33.7, RDW 12.9, Plt Count 229, MPV 9.2, Neut % (Auto) 86.1 H, Lymph % (Auto) 8.1 L, [place] % (Auto) 5.1, Eos % (Auto) 0.3, Baso % (Auto) 0.2, Neut # (Auto) 7.5, Lymph # (Auto) 0.7, [place] # (Auto) 0.5, Eos # (Auto) 0.0, Baso # (Auto) 0.0, D-Dimer 1.45 H, Sodium 137, Potassium 4.0, Chloride 102, Carbon Dioxide 24, Anion Gap 15.0, BUN 7, Creatinine 0.80, Estimated Creat Clear 119, Estimated GFR 91, Est GFR ( Amer) 110, Glucose 114 H, Calcium 9.3, Total Bilirubin 0.7, AST 28, ALT 25, Alkaline Phosphatase 68, Troponin I < 0.01, Total Protein 8.0, Albumin 4.7, Globulin 3.3 H, Albumin/Globulin Ratio 1.4, Serum HCG, Qual Negative, HCV Ab JAYLEN w/Rflx PCR Qn Negative, HIV Ag/Ab Combo Qual Negative 11/26/24 08:55: Troponin I < 0.01 11/26/24 06:06 11/26/24 06:06 Response Orders (Tests/Meds): ED MEDICATIONS Discontinued Medications Generic Name Dose Route Start Last Admin Trade Name Freq PRN Reason Stop Dose Admin Lactated Ringer's 1,000 mls @ 999 mls/hr 11/26/24 06:00 11/26/24 07:43 Lactated Ringer's 1000 Ml Bag IV 11/26/24 07:00 Infused .Q1H1M ONE Infusion Lactated Ringer's 1,000 mls @ 999 mls/hr 11/26/24 07:19 11/26/24 08:59 Lactated Ringer's 1000 Ml Bag IV 11/26/24 08:19 Infused .Q1H1M ONE Infusion Iopamidol 80 ml 11/26/24 07:40 11/26/24 07:41 Iopamidol-370 (76%);100ml Bottle IV 11/26/24 07:41 80 ml ONCE ONE Administration Ketorolac Tromethamine 30 mg 11/26/24 06:00 11/26/24 06:34 Ketorolac 30mg/Ml Vial IV 11/26/24 06:01 30 mg ONCE ONE Administration Sodium Chloride 10 ml 11/26/24 07:40 11/26/24 07:41 Sodium Chloride 0.9% 10ml Syr (Rad Only) IV 11/26/24 07:41 10 ml ONCE ONE Administration Sodium Chloride 50 ml 11/26/24 07:40 11/26/24 07:41 0.9 % Sodium Chloride 50 Ml Vial IV 11/26/24 07:41 50 ml ONCE ONE Administration ORDERS Category Date Time Status CTA Chest [CT angio chest PE protocol] Stat Cat Scan 11/26/24 07:20 Completed CXR --portable [XR chest portable] Stat Exams 11/26/24 06:00 Completed CBC w/Auto Diff [Complete Blood Count Auto Diff] Stat Lab 11/26/24 06:06 Completed CMP [Comprehensive Metabolic Panel] Stat Lab 11/26/24 06:06 Completed D-Dimer Stat Lab 11/26/24 06:06 Completed HCG Qualitative, Serum Stat Lab 11/26/24 06:06 Completed HIV Combo Stat Lab 11/26/24 06:06 Completed Hepatitis C Ab Qual. W/ RFX Stat Lab 11/26/24 06:06 Completed Mini Respiratory Panel Stat Lab 11/26/24 06:00 Completed Trop I [Troponin I] Stat Lab 11/26/24 06:06 Completed Troponin I Q3H Lab 11/26/24 08:55 Completed Troponin I Q3H Lab 11/26/24 12:15 Ordered ECG Request Stat Y 11/26/24 06:00 Ordered MDM Narrative Medical Decision Narrative: In summary, this 23-year-old female with comorbidities described in the HPI presents to the emergency department today with headache, body aches, fever, congestion, shortness of breath. On initial evaluation patient is tachycardic but otherwise hemodynamically stable, mildly febrile to 100.8, cardiac exam benign, abdominal exam benign, no lymphadenopathy, remainder of exam reassuring. Differential diagnosis includes but is not limited to viral syndrome which I believed to be by far most likely including COVID, influenza, rhinovirus, among others, patient thinks she may be dehydrated and feels short of breath. On discussion with her her symptoms are worse than normal even in the setting of her new diagnosis of POTS and we discussed lab workup which she would like to do at this time. On my differential includes ACS, arrhythmia, PE, pneumonia though I have low suspicions for these at this time. Based on these concerns, I ordered hematologic and serum labs, cardiac workup, viral swab, chest x-ray. ECG personally interpreted demonstrates sinus tachycardia with short AZ, there does appear to be a slight delta wave, rate 110, normal axis, normal QTc, no STEMI. 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 Patient received IV fluids, Toradol for treatment. Labs personally reviewed demonstrate no leukocytosis or anemia, platelets normal, hCG negative, CMP nonactionable, D-dimer elevated at 1.45 is concerning for possible PE. XR personally interpreted demonstrates no acute intrathoracic abnormality, see radiology read for final interpretation. CTA PE has been added to workup. Patient handed off to Dr. Wynn in stable condition pending troponin, PE scan, viral swab results, cardiology consult. <Paulo Wynn MD - Last Filed: 11/26/24 09:22> Vital Signs Vital Signs: 11/26/24 05:55 11/26/24 06:27 11/26/24 06:30 Temperature 100.8 F H Temperature Source Oral Pulse Rate 107 H 109 H Pulse Rate [Left] 137 H Respiratory Rate 16 Blood Pressure 111/77 109/76 L Blood Pressure [Right Arm] 120/76 Blood Pressure Mean [Right Arm] 90 Blood Pressure Source [Right Arm] Automatic Cuff Blood Pressure Position [Right Arm] Sitting 02 Sat by Pulse Oximetry 98 99 99 Oxygen Delivery Method Room Air 11/26/24 07:00 11/26/24 07:29 11/26/24 08:00 Temperature Temperature Source Pulse Rate 108 H 111 H 99 H Pulse Rate [Left] Respiratory Rate 21 22 Blood Pressure 107/60 L 95/76 L 107/55 L Blood Pressure [Right Arm] Blood Pressure Mean [Right Arm] Blood Pressure Source [Right Arm] Blood Pressure Position [Right Arm] 02 Sat by Pulse Oximetry 93 L 96 96 Oxygen Delivery Method 11/26/24 08:30 Temperature Temperature Source Pulse Rate 93 H Pulse Rate [Left] Respiratory Rate 18 Blood Pressure 109/59 L Blood Pressure [Right Arm] Blood Pressure Mean [Right Arm] Blood Pressure Source [Right Arm] Blood Pressure Position [Right Arm] 02 Sat by Pulse Oximetry 97 Oxygen Delivery Method Lab Data Labs: Lab Results 11/26/24 06:00: SARS-CoV-2 (PCR) Not detected, Influenza Type A (PCR) Not detected, Influenza Type B (PCR) Not detected, RSV (PCR) Not detected, Rhinovirus (PCR) Not detected 11/26/24 06:06: WBC 8.8, RBC 4.82, Hgb 13.4, Hct 39.8, MCV 82.6, MCH 27.8, MCHC 33.7, RDW 12.9, Plt Count 229, MPV 9.2, Neut % (Auto) 86.1 H, Lymph % (Auto) 8.1 L, [place] % (Auto) 5.1, Eos % (Auto) 0.3, Baso % (Auto) 0.2, Neut # (Auto) 7.5, Lymph # (Auto) 0.7, [place] # (Auto) 0.5, Eos # (Auto) 0.0, Baso # (Auto) 0.0, D-Dimer 1.45 H, Sodium 137, Potassium 4.0, Chloride 102, Carbon Dioxide 24, Anion Gap 15.0, BUN 7, Creatinine 0.80, Estimated Creat Clear 119, Estimated GFR 91, Est GFR ( Amer) 110, Glucose 114 H, Calcium 9.3, Total Bilirubin 0.7, AST 28, ALT 25, Alkaline Phosphatase 68, Troponin I < 0.01, Total Protein 8.0, Albumin 4.7, Globulin 3.3 H, Albumin/Globulin Ratio 1.4, Serum HCG, Qual Negative, HCV Ab JAYLEN w/Rflx PCR Qn Negative, HIV Ag/Ab Combo Qual Negative 11/26/24 08:55: Troponin I < 0.01 Response Orders (Tests/Meds): ED MEDICATIONS Discontinued Medications Generic Name Dose Route Start Last Admin Trade Name Tylerq PRN Reason Stop Dose Admin Lactated Ringer's 1,000 mls @ 999 mls/hr 11/26/24 06:00 11/26/24 07:43 Lactated Ringer's 1000 Ml Bag IV 11/26/24 07:00 Infused .Q1H1M ONE Infusion Lactated Ringer's 1,000 mls @ 999 mls/hr 11/26/24 07:19 11/26/24 08:59 Lactated Ringer's 1000 Ml Bag IV 11/26/24 08:19 Infused .Q1H1M ONE Infusion Iopamidol 80 ml 11/26/24 07:40 11/26/24 07:41 Iopamidol-370 (76%);100ml Bottle IV 11/26/24 07:41 80 ml ONCE ONE Administration Ketorolac Tromethamine 30 mg 11/26/24 06:00 11/26/24 06:34 Ketorolac 30mg/Ml Vial IV 11/26/24 06:01 30 mg ONCE ONE Administration Sodium Chloride 10 ml 11/26/24 07:40 11/26/24 07:41 Sodium Chloride 0.9% 10ml Syr (Rad Only) IV 11/26/24 07:41 10 ml ONCE ONE Administration Sodium Chloride 50 ml 11/26/24 07:40 11/26/24 07:41 0.9 % Sodium Chloride 50 Ml Vial IV 11/26/24 07:41 50 ml ONCE ONE Administration ORDERS Category Date Time Status CTA Chest [CT angio chest PE protocol] Stat Cat Scan 11/26/24 07:20 Completed CXR --portable [XR chest portable] Stat Exams 11/26/24 06:00 Completed CBC w/Auto Diff [Complete Blood Count Auto Diff] Stat Lab 11/26/24 06:06 Completed CMP [Comprehensive Metabolic Panel] Stat Lab 11/26/24 06:06 Completed D-Dimer Stat Lab 11/26/24 06:06 Completed HCG Qualitative, Serum Stat Lab 11/26/24 06:06 Completed HIV Combo Stat Lab 11/26/24 06:06 Completed Hepatitis C Ab Qual. W/ RFX Stat Lab 11/26/24 06:06 Completed Mini Respiratory Panel Stat Lab 11/26/24 06:00 Completed Trop I [Troponin I] Stat Lab 11/26/24 06:06 Completed Troponin I Q3H Lab 11/26/24 08:55 Completed Troponin I Q3H Lab 11/26/24 12:15 Ordered ECG Request Stat Y 11/26/24 06:00 Ordered MDM Narrative Medical Decision Narrative: In summary, this 23-year-old female with comorbidities described in the HPI presents to the emergency department today with headache, body aches, fever, congestion, shortness of breath. On initial evaluation patient is tachycardic but otherwise hemodynamically stable, mildly febrile to 100.8, cardiac exam benign, abdominal exam benign, no lymphadenopathy, remainder of exam reassuring. Differential diagnosis includes but is not limited to viral syndrome which I believed to be by far most likely including COVID, influenza, rhinovirus, among others, patient thinks she may be dehydrated and feels short of breath. On discussion with her her symptoms are worse than normal even in the setting of her new diagnosis of POTS and we discussed lab workup which she would like to do at this time. On my differential includes ACS, arrhythmia, PE, pneumonia though I have low suspicions for these at this time. Based on these concerns, I ordered hematologic and serum labs, cardiac workup, viral swab, chest x-ray. ECG personally interpreted demonstrates sinus tachycardia with short [place], there does appear to be a slight delta wave, rate 110, normal axis, normal QTc, no STEMI. 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 Patient received IV fluids, Toradol for treatment. Labs personally reviewed demonstrate no leukocytosis or anemia, platelets normal, hCG negative, CMP nonactionable, D-dimer elevated at 1.45 is concerning for possible PE. XR personally interpreted demonstrates no acute intrathoracic abnormality, see radiology read for final interpretation. CTA PE has been added to workup. Patient handed off to Dr. Wynn in stable condition pending troponin, PE scan, viral swab results, cardiology consult. I, Paulo NUNEZ, took over care of this patient at 0700. Briefly, 23-year-old female with history of POTS coming in with viral symptoms. Initially heart rate was in the 150s. She never had any presyncope or syncope. She follows with cardiology for her POTS. After fluid resuscitation here her tachycardia improved. Cross-sectional imaging without evidence of pulmonary embolism. Her EKG that was repeated after her fluid resuscitation was independently interpreted by myself to demonstrate normal sinus rhythm within appropriate AZ interval, with no obvious acute ischemic ST changes. I spoke with Dr. Godoy had an interactive discussion with him and he would like to follow-up the patient in clinic tomorrow. After fluids/Tatian, tachycardia improved patient is resting comfortably amenable for discharge, all questions answered. Strict return precautions discussed
[2024-11-26 06:05] LABS: Coronavirus 19, PCR Not Detected (NotDetected); Influenza A, PCR Not Detected (NotDetected); Influenza B, PCR Not Detected (NotDetected)
[2024-11-26] MEDS: LACTATED RINGERS 1000ML 1,000 ML 999 ML IV ×2 (06:12→07:43)
[2024-11-26 06:15] LABS: Hematocrit 39.8 % (37.0-47.0); Hemoglobin 13.4 g/dL (12.2-16.2); Immature Granulocytes % 0.2 %; Mean Corpuscular HGB Conc 33.7 g/dL (31.8-35.4); Mean Corpuscular Hemoglobin 27.8 pg (27.0-31.2); Mean Corpuscular Volume 82.6 fl (81-99); Nucleated Red Blood Cells % 0 %; Platelet Count 229 K/mm3 (142-424); Red Blood Count 4.82 M/mm3 (4.20-5.40); Red Cell Distribution Width-SD 39.0 fL; White Blood Count 8.8 K/mm3 (4.8-10.8)
--- NOTE | 2024-11-26 06:18 | ECG_ITS ---
APPROVED REPORT Exam: Resting ECG HR:110 bpm ECG Measurements Heart Rate 110 AXES AK 119 P 53 QRSd 81 QRS 87 QT 303 T 28 QTc 368 Conclusion SINUS TACHYCARDIA WITH SHORT AK INTERVAL MINIMAL ST DEPRESSION [0.025+ mV ST DEPRESSION] ABNORMAL RHYTHM ECG UNCONFIRMED REPORT Electronically signed by : RED RICO, 11/27/2024 23:06:16
[2024-11-26 06:24] LABS: HCG Qualitative, Serum Negative (Negative)
[2024-11-26 06:26] LABS: Alanine Aminotransferase 25 U/L (12-78); Albumin Level 4.7 g/dl (3.5-5.0); Albumin/Globulin Ratio 1.4 (1.1-1.8); Alkaline Phosphatase 68 U/L (38-126); Anion Gap 15.0 mEq/L (5-15); Aspartate Amino Transferase 28 U/L (14-36); Bilirubin,Total 0.7 mg/dl (0.2-1.3); Blood Urea Nitrogen 7 mg/dl (7-17); Calcium 9.3 mg/dl (8.4-10.2); Carbon Dioxide 24 mmol/L (22.0-30.0); Chloride 102 mmol/L (98-107); Creatinine Clearance Estimated 119 mL/min (50-200); Creatinine,Serum 0.80 mg/dl (0.52-1.04); Estimated Glomerular Filt Rate 91 ml/min (>60); GFR (African American) 110 ML/MIN (>60); Globulin 3.3 g/dL (1.3-3.2); Glucose 114 mg/dl (74-100); Potassium 4.0 mmoL/L (3.5-5.1); Sodium 137 mmol/L (136-145); Total Protein,Serum 8.0 g/dl (6.3-8.2)
[2024-11-26 06:30] LABS: D-Dimer 1.45 ug/mL (0.0-0.5)
[2024-11-26] MEDS: KETOROLAC 30MG/ML VIAL 30 MG IV (06:34)
[2024-11-26 06:41] LABS: Troponin I < 0.01 ng/ml (0.00-0.034)
--- NOTE | 2024-11-26 07:20 | CT_ITS ---
PROCEDURE INFORMATION: Exam: CTA Chest With Contrast Exam date and time: 11/26/2024 7:36 AM Age: 23 years old Clinical indication: Pain and abnormal findings; Abnormal diagnostic tests; Elevated d-dimer; Other: Cp; Additional info: Cp, positive dimer TECHNIQUE: Imaging protocol: Computed tomographic angiography of the chest with contrast. Exam focused on the arteries. 3D rendering (Not supervised by radiologist): MIP and/or 3D reconstructed images were created by the technologist. Radiation optimization: All CT scans at this facility use at least one of these dose optimization techniques: automated exposure control; mA and/or kV adjustment per patient size (includes targeted exams where dose is matched to clinical indication); or iterative reconstruction. Contrast material: ISOVUE; Contrast volume: 80 ml; Contrast route: INTRAVENOUS (IV); COMPARISON: CR XR CHEST PORTABLE 11/26/2024 6:32 AM FINDINGS: Pulmonary arteries: No evidence of pulmonary embolus to the segmental level. Aorta: No aneurysm of the aorta. No dissection of the aorta. Lungs: Unremarkable. No consolidation. No masses. Pleural spaces: Unremarkable. No pneumothorax. No pleural effusion. Heart: Unremarkable. No cardiomegaly. No pericardial effusion. Lymph nodes: Unremarkable. No enlarged lymph nodes. Bones/joints: Unremarkable. No acute fracture. Soft tissues: Unremarkable. IMPRESSION: 1. No evidence of pulmonary embolus to the segmental level. 2. No aneurysm of the aorta. 3. No dissection of the aorta.
--- NOTE | 2024-11-26 07:29 | PC.NURSE ---
Patient is going to radiology.
[2024-11-26] MEDS: 0.9 % SODIUM CHLORIDE 50 ML VIAL IV (07:41)
[2024-11-26] MEDS: IOPAMIDOL-370 (76%);100ML BOTTLE 80 ML IV (07:41)
[2024-11-26] MEDS: SODIUM CHLORIDE 0.9% 10ML SYR (RAD ONLY) 10 ML IV (07:41)
--- NOTE | 2024-11-26 08:23 | ECG_ITS ---
APPROVED REPORT Exam: Resting ECG HR:96 bpm ECG Measurements Heart Rate 96 AXES OK 131 P 49 QRSd 79 QRS 88 QT 338 T -1 QTc 392 Conclusion SINUS RHYTHM MINIMAL ST DEPRESSION [0.025+ mV ST DEPRESSION] ABNORMAL QRS-T ANGLE [QRS-T AXIS DIFFERENCE > 60] ABNORMAL ECG UNCONFIRMED REPORT Electronically signed by : RED RICO, 11/27/2024 23:04:00
[2024-11-26 09:08] LABS: Hepatitis C Ab Qual. W/ RFX NEGATIVE (Negative)
[2024-11-26 09:19] LABS: Troponin I < 0.01 ng/ml (0.00-0.034)
== END 2024-11-26 09:35 | disposition home or self-care (01) ==
PROVIDERS: Emergency Provider Emergency Medicine; PCP Internal Medicine
DX: R06.02 Shortness of breath (principal); R00.0 Tachycardia, unspecified; R51.9 Headache, unspecified; R50.9 Fever, unspecified; R19.7 Diarrhea, unspecified; B34.9 Viral infection, unspecified; R94.31 Abnormal electrocardiogram [ECG] [EKG]
CPT/HCPCS: 71045; 71275; 80053; 84484; 84703; 85025; 85378; 86803; 87389; 87631; 93005; 96365; 96366; 99285; J1885; J7120; Q9967

== ENCOUNTER 2025-01-31 18:51 | Outpatient (CLI) | payer OTHER, SELFPAY ==
[2025-01-31 21:29] LABS: Coronavirus 19, PCR Not Detected (NotDetected); Influenza A, PCR Not Detected (NotDetected); Influenza B, PCR Not Detected (NotDetected)
== END 2025-01-31 23:59 ==
LOC: LAB.DROPOF 02-02 11:15
PROVIDERS: PCP Internal Medicine; Visit Provider Nurse Practitioner
DX: J06.9 Acute upper respiratory infection, unspecified (principal)
CPT/HCPCS: 87631

== ENCOUNTER 2025-03-09 09:40 | Outpatient (CLI) | payer OTHER, SELFPAY ==
--- OUTSIDE RECORDS SUMMARY | 2024-05-30 11:30 | XMS_ITS ---
Author Organization [facility] Address [address] [place] [phone] Care Team Providers Care Managing Principal Name Role Phone Suni Oconnell Unavailable [phone] Jacqueline Valerio Unavailable [phone] Allergies No Known Allergies REASON FOR VISIT chronic pain all over Medications Medication SIG (Take, Route, Fr equency, Duration) Notes Start Date End Date Status Meloxicam 15 MG 1 tablet Orally Once a day; Duration: 30 day(s) 05/30/2024 Active Vital Signs Blood pressure systolic 116 mm Hg 05/31/19 25 Blood pressure diastolic 72 mm Hg 025 Heart Rate 66 /min 05/30/2024 Height 64 in 05/30/2024 Weight 171.8 lbs 05/30/2024 BMI 29.49 kg/m2 05/30/2024 Encounters Encounter Location Date Provider Diagnosis [facility] [address] [place] [address] [place] [phone] 05/30/2024 Jacqueline Valerio Arthralgia M25.50 Assessments Encounter Date Diagnosis (ICD Code) Assessment Notes Treatment Notes Treatment Clinical Notes Section Notes 05/30/2024 Arthralgia (ICD-10 - M25.50) Plan Of Treatment Medication Medication Name Sig Start Date Stop Date Notes Meloxicam 15 MG 1 tablet Orally Once a day; Duration: 30 day(s) 05/30/2024 Pending Test Test Name Order Date I-Z-Dkuhwmes Protein (CRP) 05/30/2024 P-Arthritis Panel, [facility] 05/30/2024 P-Uric Acid 05/30/2024 Next Appt Details Follow Up: 4 Weeks, Reason: Progress Notes * NYA SERNAOB:2000 (24 yo F)Acc No.[id number]:05/30/2024 Progress Notes Patient: KATHRINE WORLEY Provider: Jacqueline Valerio M.D. :2000 A ge:23 Y S ex:Female Date:05/30/2024 Address:[address] [place] [address] Subjective: * Chief Complaints: * 1 . Chronic pain all over. * HPI: R heumatology: Kathrine comes in complaining of joint pain and stiffness in multiple joints which has been present most of her life. She began playing soccer at age 6 and as long as she can remember, she has had pain in various joints and assumed it was that related to soccer. However she has not played soccer for the past 3 years and continues to have daily joint pain. She denies acute swelling, redness, or warmth of her joints. No known family history of inflammatory joint disease. * ROS: D ERMATOLOGY: no R pretty. n o H denise. G ASTROENTEROLOGY: no N ausea. n o V omiting. n o D iarrhea.? U ROLOGY: no D ifficulty urinating. n o B lood in urine. * Medical History: M edical History Verified. * Surgical History: T onsillectomy 2010, Right ACL and Meniscus repair Dr Mata 2019. * Family History: F ather: alive, diagnosed with Hypertension. M other: alive. P aternal Grand Father: alive, diagnosed with Heart Disease. P aternal Grand Mother: , diagnosed with Diabetes, Cancer. M aternal Grand Father: alive, diagnosed with Cancer. M aternal Grand Mother: . 2 sister(s) - healthy. . Maternal grandfather- prostate cancer. * Social History: C URRENT TOBACCO USE: No . C affeine: yes, frequency: occasional soda. Alcohol: no. Recreational drug use: no. * Medications: N one * Allergies: N .K.D.A. Objective: * Vitals: W t:171.8, Temp:98.5, BP:116/72, HR:66, O2 Sat:99% on RA, Nurse:jacqueline, Ht: 64, BMI:29.49. * Examination: G eneral Examination: General Appearance: N AD. E xtremities: O n examination, there is no acute joint swelling, redness, or warmth. Range of motion of joints is normal.. Assessment: * Assessment: 1. A rthralgia - M25.50 (Primary) Plan: * Treatment: * Procedure Codes: 3 074F SYST BP LT 130 MM HG, 3078F DIAST BP < 80 MM HG * Follow Up: 4 Weeks * Images: Billing Information: * Visit Code: 37810 Office Visit, Est Pt., Level 3. * Procedure Codes: 3074F SYST BP LT 130 MM HG. 3078F DIAST BP < 80 MM HG. * Electronic signature of Jacqueline Valerio MD on 03/10/2025 at 09:52 AM EST Sign off status: Pending * Provider: Jacqueline Valerio M.D. Date: 0 05/30/2024 Generated for Santos putnam/Soco/Jeannasmitting on: 1 05/11/2024 09:52 AM EST History and Physical Notes * Examination Category Sub-Category Detail Notes Category Not es General Examination Extremities: On examinati on, there is no acute joint swelling, redness, or warmth. Range of motion of joints is normal. General Appearance: NAD
--- OUTSIDE RECORDS SUMMARY | 2024-05-31 03:15 | XMS_ITS ---
Author Organization [facility] Address [address] [phone] Care Team Providers Care Tank Crewmember Name Role Phone Suni Oconnell Unavailable [phone] Jacqueline Valerio Unavailable [phone] Results Component Value Reference Range Notes P-Arthritis Panel, [facility] Reviewed date:06/05/2024 10:23:08 AM Interpretation:Normal Performing Lab: Notes/Report: Test performed by [facility] [address] , [address], [place] [address] Silvino Reese MD, C++ Quant Developer CLIA: [id number] Erythrocyte Sedimentation Rate (ESR), Automated 2 <26 mm/hr Rheumatoid Factor 11.0 <14.1 IU/mL C-Reactive Protein (CRP) 0.14 <0.50 mg/dL Antinuclear Antibodies (VAN) Screen, Reflex VAN 9 Panel Negative Negative This test is performed by Multiplex Bead Immunoassay methodology. Antinuclear Antibodies (VAN) Result Note SEE COMMENT For positive Autoantibodies, please refer to the interpretive chart here: [email or web address] CCP Antibodies <0.5 <0.5-3.0 U/mL P-Uric Acid Reviewed date:06/05/2024 10:23:08 AM Interpretation:Normal Performing Lab: Notes/Report: Test performed by [facility] [address] , [address], [place] [address] Silvino Reese MD, C++ Quant Developer CLIA: [id number] Uric Acid 5.4 2.4-7.0 mg/dL REASON FOR VISIT blood work Encounters Encounter Location Date Provider Diagnosis [facility] [address] [place] [phone] 05/31/2024 Jacqueline Valerio Arthralgia of multip le joints M25.50 Assessments Encounter Date Diagnosis (ICD Code) Assessment Notes Treatment Notes Treatment Clinical Notes Section Notes 05/31/2024 Arthralgia of multiple joints (ICD-10 - M25.50) Plan Of Treatment Pending Test Test Name Order Date Z-A-Dzzbjouq Protein (CRP) 05/31/2024 Progress Notes * NYA SERNAOB:2000 (24 yo F)Acc No.[id number]:05/31/2024 Patient: KAYE WORLEY Provider: Jacqueline Valerio M.D. :2000 A ge:23 Y S ex:Female Date:05/31/2024 Address:[address] [place] [address] Subjective: * Chief Complaints: * 1 . Blood work. * Medical History: Objective: * Vitals: Assessment: * Assessment: 1. A rthralgia of multiple joints - M25.50 (Primary) Plan: * Treatment: Value Reference Range A ntinuclear Antibodies (VAN) Result Note SEE COMMENT - * A ntinuclear Antibodies (VAN) Screen, Reflex VAN 9 Panel Negative Negative - * C CP Antibodies <0.5 <0.5-3.0 - U/mL * C -Reactive Protein (CRP) 0.14 <0.50 - mg/dL * E rythrocyte Sedimentation Rate (ESR), Automated 2 <26 - mm/hr * R heumatoid Factor 11.0 <14.1 - IU/mL * Jacqueline Valerio 06/05/2024 1 0:22:51 AM >See phone encounter ?LAB: P-Uric Acid (Collection Date & Time - 05/31/2024 07:51 AM)?Normal* Value Reference Range U helen Acid 5.4 2.4-7.0 - mg/dL * Jacqueline Valerio 06/05/2024 1 0:22:51 AM >See phone encounter * Images: Billing Information: * Visit Code: * Procedure Codes: * Electronic signature of Jacqueline Valerio MD on 03/10/2025 at 09:52 AM EST Sign off status: Pending * Provider: Jacqueline Valerio M.D. Date: 0 05/31/2024 Generated for Hani jersey/Soco/eTransmitting on: 1 05/11/2024 09:52 AM EST
--- OUTSIDE RECORDS SUMMARY | 2024-06-27 11:15 | XMS_ITS ---
Author Organization [facility] Address [address] [place] [phone] Care Team Providers Care Eye Technician Name Role Phone Suni Oconnell Unavailable [phone] Jacqueline Valerio Unavailable [phone] REASON FOR VISIT 1 month ckup Encounters Encounter Location Date Provider Diagnosis [facility] [address] [place] [phone] 06/27/2024 Jacqueline Valerio Plan Of Treatment No Information Progress Notes * NYA SERNAOB:2000 (24 yo F)Acc No.[id number]:06/27/2024 Progress Notes Patient: KAYE WORLEY Provider: Jacqueline Valerio M.D. :2000 A ge:23 Y S ex:Female Date:06/27/2024 Address:[address] [place], [place] [phone] Subjective: * Chief Complaints: * 1 . 1 month ckup. * Medical History: Objective: * Vitals: Assessment: Plan: * Treatment: * Images: Billing Information: * Visit Code: * Procedure Codes: * Electronic signature of Jacqueline Valerio MD on 03/10/2025 at 09:52 AM EST Sign off status: Pending * Provider: Jacqueline Valerio M.D. Date: 0 06/27/2024 Generated for Printi ng/Faalistairg/eTransmitting on: 1 05/11/2024 09:52 AM EST
[2025-03-09 13:43] LABS: Lyme Ab IgM CIA ND
[2025-03-09 15:21] LABS: C-Reactive Protein 3.1 mg/L (0-4)
--- OUTSIDE RECORDS SUMMARY | 2025-03-10 09:52 | XMS_ITS | Patient Health Record ---
Author Organization [facility] Address [address] [facility] [address] [phone] Care Team Providers Care Transit Operator Name Role Phone Suni Oconnell Unavailable [phone] Jacqueline Valerio Unavailable [phone] Allergies No Known Allergies Results Component Value Reference Range Notes P-Uric Acid Reviewed date:06/05/2024 10:23:08 AM Interpretation:Normal Performing Lab: Notes/Report: CLIA: [id number] Silvino Reese MD, Student Affairs Vice President [address] [place] [address] , [place] [address] Test performed by [facility] Uric Acid 5.4 2.4-7.0 mg/dL P-Arthritis Panel, [facility] Reviewed date:06/05/2024 10:23:08 AM Interpretation:Normal Performing Lab: Notes/Report: Test performed by [facility] [address] [place] [address] , [place] [address] Silvino Reese MD, Student Affairs Vice President CLIA: [id number] Erythrocyte Sedimentation Rate (ESR), Automated 2 <26 mm/hr Rheumatoid Factor 11.0 <14.1 IU/mL C-Reactive Protein (CRP) 0.14 <0.50 mg/dL Antinuclear Antibodies (VAN) Screen, Reflex VAN 9 Panel Negative Negative This test is performed by Multiplex Bead Immunoassay methodology. Antinuclear Antibodies (VAN) Result Note SEE COMMENT For positive Autoantibodies, please refer to the interpretive chart here: [email or web address] CCP Antibodies <0.5 <0.5-3.0 U/mL [...] 05/30/2024 Encounters Encounter Location Date Provider Diagnosis [facility] [address] JENN Pinzon [id number] 05/30/2024 R Kingsley Valerio Arthralgia M25.50 [facility] [address] JENN Pinzon [id number] 05/31/2024 R Kingsley Singhfleet Arthralgia of multip le joints M25.50 [facility] [address] JENN Pinzon [id number] 06/05/2024 Suni Oconnell Assessments Encounter Date Diagnosis (ICD Code) Assessment Notes Treatment Notes Treatment Clinical Notes Section Notes 05/31/2024 Arthralgia of multiple joints (ICD-10 - M25.50) 05/30/2024 Arthralgia (ICD-10 - M25.50) Plan Of Treatment Pending Test Test Name Order Date B-Y-Kduuoeup Protein (CRP) 05/31/2024 Y-J-Yenflsyc Protein (CRP) 05/30/2024 P-Arthritis Panel, [facility] 05/30/2024 P-Uric Acid 05/30/2024 Insurance Providers Payer Name Payer Address Payer Phone Subscriber Number Group Number Insured Name Patient Relationship to Insured Coverage Start Date Coverage End Date KYLE JAVED [address] [place] [address] [id number] KAYE SERNA Self - patient is the insured Medical (General) History Surgical History Surgery Date(Month/Year) Tonsillectomy 2009 Right ACL and Meniscus repair Dr Mata 2018
[2025-03-11 10:11] LABS: Lyme Ab CIA Negative (Negative)
== END 2025-03-09 23:59 | disposition home or self-care (01) ==
LOC: LAB.DROPOF 03-10 09:50
PROVIDERS: PCP Internal Medicine; Visit Provider Internal Medicine
DX: R53.83 Other fatigue (principal); R50.9 Fever, unspecified; M25.50 Pain in unspecified joint
CPT/HCPCS: 85651; 86140; 86618